=== PATIENT | male | born 1985 | race Caucasian/White ===

== ENCOUNTER 2020-09-08 17:49 | Emergency (ER) | payer SELFPAY ==
[~2020-09-08] VITALS: Ht 170.2 cm; Wt 91.0 kg
[2020-09-08] MEDS ORDERED: MORPHINE SULFATE 4 MG/ML CPJ (NOT FOR IM USE) IV ONE ×2 (18:45→19:45)
[2020-09-08] MEDS ORDERED: KETOROLAC 30MG/ML VIAL IV ONE (19:45)
[2020-09-08] MEDS ORDERED: IBUPROFEN 600MG TABLET PO SCH (22:15)
[2020-09-08] MEDS ORDERED: MORPHINE SULFATE 4 MG/ML CPJ (NOT FOR IM USE) IV SCH (22:15)
[2020-09-08 22:34] VITALS: BP 121/89
== END 2020-09-08 22:37 | disposition home or self-care (01) ==
LOC: ER 17:49 → EDBD 17:49 → ER 22:37
DX: S52.124A Nondisplaced fracture of head of right radius, initial encounter for closed fracture (principal); S52.091A Other fracture of upper end of right ulna, initial encounter for closed fracture; Z98.890 Other specified postprocedural states; W01.0XXA Fall on same level from slipping, tripping and stumbling without subsequent striking against object, initial encounter; Y93.89 Activity, other specified; Y92.018 Other place in single-family (private) house as the place of occurrence of the external cause
CPT/HCPCS: 29125; 73080; 96374; 96375; 96376; 99284; J1885; J2270; Z7610